=== PATIENT | female | born 1970 | race Caucasian/White ===

== ENCOUNTER 2021-07-01 06:53 | Day surgery (SDC) | payer MEDICAID ==
[2021-07-01] MEDS ORDERED: Lactated Ringers 1,000 ML IV SCH (09:00)
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
[2021-07-01] MEDS ORDERED: Midazolam 1 MG/ML 2 ML SDV ONE (10:16)
[2021-07-01] MEDS ORDERED: Propofol 200 MG/20 ML SDV ONE (10:16)
[2021-07-01] MEDS ORDERED: fentaNYL 100 MCG/2 ML SDV ONE ×2 (10:16→11:33)
[2021-07-01] MEDS ORDERED: Bupivacaine 0.5% 10 ML SDV ONE (10:35)
[2021-07-01] MEDS ORDERED: Octyl 2-Cyanoacrylate 1 Tube ONE (10:35)
[2021-07-01] MEDS ORDERED: Lidocaine 1% 20 ML MDV ONE (10:35)
[2021-07-01] MEDS ORDERED: Ketamine 500 mg/10 ML MDV ONE (11:00)
[2021-07-01] MEDS ORDERED: ceFAZolin 1 GM Vial ONE (11:04)
[2021-07-01] MEDS ORDERED: Glycopyrrolate 0.2 MG/ML SDV ONE (11:11)
[2021-07-01] MEDS ORDERED: Ketorolac 30 MG/ML SDV ONE (11:33)
--- NOTE | 2021-07-01 11:37 | PCM.OPNOTE ---
- General Post-Op/Procedure Note Date of Surgery/Procedure: 07/01/21 Operative Procedure(s): Umbilical wound debridement Findings: Granulation tissue at the base of the umbilicus. Large amount of hair within the wound Pre Op Diagnosis: Umbilical wound Post-Op Diagnosis: same Anesthesia Technique: Local, MAC Primary Surgeon: Suki Mary Fluid Replacement, Intraop: 800 EBL in mLs: 3 Condition: Good
--- NOTE | 2021-07-01 11:39 | PCM.POSTAN ---
POST ANESTHESIA ASSESSMENT - MENTAL STATUS Mental Status: Alert, Oriented - VITAL SIGNS Vital Signs: Last Vital Signs Temp 96.8 F L 07/01/21 08:33 Pulse 90 07/01/21 08:33 Resp 16 07/01/21 08:33 BP 137/85 07/01/21 08:33 Pulse Ox 99 07/01/21 08:33 - RESPIRATORY Respiratory Status: Respiratory Rate WNL, Airway Patent, O2 Saturation Stable - CARDIOVASCULAR CV Status: Pulse Rate WNL, Blood Pressure Stable - GASTROINTESTINAL GI Status: No Symptoms - PAIN Pain Score: 4 - POST OP HYDRATION Hydration Status: Adequate & Stable
--- NOTE | 2021-07-01 12:02 | PCM48HPAN ---
Post Anesthesia Note - EVALUATION WITHIN 48HRS OF ANESTHETIC Vital Signs in Normal Range: Yes Patient Participated in Evaluation: Yes Respiratory Function Stable: Yes Airway Patent: Yes Cardiovascular Function Stable: Yes Hydration Status Stable: Yes Pain Control Satisfactory: Yes Nausea and Vomiting Control Satisfactory: Yes Mental Status Recovered: Yes Vital Signs: Last Vital Signs Temp 96.8 F L 07/01/21 08:33 Pulse 68 07/01/21 11:50 Resp 15 07/01/21 11:50 BP 102/60 07/01/21 11:50 Pulse Ox 92 L 07/01/21 11:50 - COMMENTS/OBSERVATIONS Free Text/Narrative:: Pt doing well post-op. VSS. No apparent anesthetic complications. Dr. Miguel Live
--- NOTE | 2021-07-01 22:42 | OR ---
SURGEON: SUKI MARY MD DATE OF PROCEDURE: 07/01/2021 PREOPERATIVE DIAGNOSIS: Umbilical wound. POSTOPERATIVE DIAGNOSIS: Umbilical wound. PROCEDURE PERFORMED: Umbilical wound debridement. PRIMARY SURGEON: Suki Mary MD ANESTHESIA: General mask, local. FLUIDS: 800 mL crystalloid. ESTIMATED BLOOD LOSS: 3 mL. FINDINGS: Granulation tissue at the base of the umbilicus. This area contained hair. No evidence of the wound tracking into the abdomen. No evidence of fistula. COMPLICATIONS: None. INDICATIONS: The patient is a 50-year-old female who presented to my office with foul drainage and a lesion inside her umbilicus. On inspection in the clinic, the patient was tender around the umbilicus, had drainage, and what appeared to be a skin tag at the base of the umbilical skin. In order to debride this wound and explore it further, we decided to go to the operating room. I explained the procedure, expected perioperative course, the risks. She verbalized understanding and wishes to proceed. PROCEDURE IN DETAIL: The patient was brought into the OR and placed on the OR table in supine position. A time-out was completed, verifying the patient's name, age, date of , allergies, and procedure to be performed. General mask anesthesia was induced. The abdomen was prepped and draped in usual standard fashion. I anesthetized around the umbilicus with 0.5% Marcaine plain. Retractors were brought into the field, and I retracted inside the umbilicus to better inspect the base of the area. At the base, there appeared to be a skin tag. I grasped this with a hemostat, but the tissue immediately fell apart. It appeared to be that the patient had granulation tissue at the base of the appendix. I explored the wound with a hemostat, and hair was removed from the area. I irrigated the wound and continued to clean it out. Once it was completely clean, I used a hemostat to explore deeper. The wound appeared to be along the stalk of the umbilicus. In order to rule out a fistula or an abscess underlying this, I used a 15-blade to open up the wound both superiorly and inferiorly. I then closely inspected the umbilical stalk and underlying fascia and did not see any evidence of a fistula or abscess. I could not palpate any connection into the intraabdominal cavity. The wound was irrigated copiously. I then loosely closed it with interrupted 3-0 Ethilon sutures on the superior and inferior aspect of the areas I had opened up. I then packed the wound with quarter-inch packing strip and covered it with a clean dressing. At the end of the case, the wound was hemostatic. The patient was then awoken and taken to PACU in stable condition. All counts were complete and correct at the end of the case. KRISHNA / SATISH /[id number]
== END 2021-07-01 14:00 | disposition home or self-care (01) ==
LOC: MW.SDS 06:53
PROVIDERS: ATTEND Surgery
DX: S31.105A Unspecified open wound of abdominal wall, periumbilic region without penetration into peritoneal cavity, initial encounter (principal); K21.9 Gastro-esophageal reflux disease without esophagitis; E03.9 Hypothyroidism, unspecified; E55.9 Vitamin D deficiency, unspecified; E53.8 Deficiency of other specified B group vitamins; Z90.49 Acquired absence of other specified parts of digestive tract; Z87.891 Personal history of nicotine dependence; Z98.890 Other specified postprocedural states; Z01.812 Encounter for preprocedural laboratory examination; Z20.822 Contact with and (suspected) exposure to COVID-19; Z79.899 Other long term (current) drug therapy
CPT/HCPCS: 00400; A9270-GY; J0690; J1885; J2250; J2704; J3010; J3490; J7120; U0002